=== PATIENT | female | born 1970 | race Caucasian/White ===

== ENCOUNTER → 2020-12-16 | Day surgery (SDC) | payer MEDICARE, OTHER ==
[~2020-12-16] MED LIST: ASPIRIN EC81 MG PO; BREO ELLIPTA 11 EACH INH; CHANTIX1 EACH PO; COMBIVENT RESPIM4 GM INH; CYANOCOBAL1000 MCG/1 IM; CYCLOBENZAPRINE10 MG PO; DALIRESP500 MCG PO; DOXYCYCLINE HY100 MG PO; ELAVIL25 MG PO; ESCITALOPRAM OXA5 MG PO; FENTANYL 25 M1 PATCH TOP; FLONASE ALLER15.8 ML; HYDROCODON-ACE1 EAC6 PO; LASIX40 MG PO; LOPRESSOR50 MG PO; LORAZEPAM 0.5M0.5 MG PO; MEDROL 4MG DOSEP4 MG PO; POTASSIUM CHLO10 ME1 PO; PREDNISONE 20MG20 MG PO; PREGABALIN75 MG PO
[2020-12-16 08:21] LABS: HCG (URINE) SCREEN POSITIVE (NEGATIVE)
== END | disposition home or self-care (01) ==
LOC: FAS 07:48
PROVIDERS: Obstetrics & Gynecology
DX: N93.9 Abnormal uterine and vaginal bleeding, unspecified (principal); Z32.01 Encounter for pregnancy test, result positive; Z53.8 Procedure and treatment not carried out for other reasons; I51.9 Heart disease, unspecified; I10 Essential (primary) hypertension; I83.819 Varicose veins of unspecified lower extremity with pain; R42 Dizziness and giddiness; F17.210 Nicotine dependence, cigarettes, uncomplicated; F41.9 Anxiety disorder, unspecified; F32.9 Major depressive disorder, single episode, unspecified; Z83.438 Family history of other disorder of lipoprotein metabolism and other lipidemia; J45.909 Unspecified asthma, uncomplicated; J44.9 Chronic obstructive pulmonary disease, unspecified; G40.909 Epilepsy, unspecified, not intractable, without status epilepticus; M19.90 Unspecified osteoarthritis, unspecified site; M54.2 Cervicalgia; G89.29 Other chronic pain; G43.909 Migraine, unspecified, not intractable, without status migrainosus; G47.30 Sleep apnea, unspecified; Z20.822 Contact with and (suspected) exposure to COVID-19; E66.9 Obesity, unspecified; R00.0 Tachycardia, unspecified; Z82.49 Family history of ischemic heart disease and other diseases of the circulatory system; Z88.0 Allergy status to penicillin; Z88.8 Allergy status to other drugs, medicaments and biological substances; Z80.9 Family history of malignant neoplasm, unspecified; Z88.6 Allergy status to analgesic agent; Z68.42 Body mass index [BMI] 45.0-49.9, adult; Z77.120 Contact with and (suspected) exposure to mold (toxic); Z68.30 Body mass index [BMI] 30.0-30.9, adult
CPT/HCPCS: 36415; 84702; 84703; 86850; 86900; 86901; J7120

== ENCOUNTER → 2021-01-13 | Day surgery (SDC) | payer MEDICARE, OTHER ==
[~2021-01-13] VITALS: Ht 157.5 cm; Wt 116.2 kg
[2021-01-13 10:41] LABS: HCT 44.4 % (37.0-47.0); HGB 14.5 g/dl (12.5-16.0); MCH 32.7 pg (25.0-31.0); MCHC 32.7 g/dL (32.0-36.0); MPV 9.6 fL (6.0-9.5); RBC 4.44 M/uL (4.20-5.40)
[2021-01-13 11:01] LABS: BUN/CREAT RATIO (CALC) 21.7 RATIO; CREATININE 0.69 mg/dL (0.51-0.95); POTASSIUM 3.8 mmol/L (3.5-5.1)
== END | disposition home or self-care (01) ==
LOC: FAS 09:56
PROVIDERS: Obstetrics & Gynecology
DX: N84.0 Polyp of corpus uteri (principal); N80.0 Endometriosis of uterus; J44.9 Chronic obstructive pulmonary disease, unspecified; F17.210 Nicotine dependence, cigarettes, uncomplicated; M19.90 Unspecified osteoarthritis, unspecified site; I11.9 Hypertensive heart disease without heart failure; G40.909 Epilepsy, unspecified, not intractable, without status epilepticus; E66.9 Obesity, unspecified; R11.2 Nausea with vomiting, unspecified; R42 Dizziness and giddiness; Z68.42 Body mass index [BMI] 45.0-49.9, adult; Z79.82 Long term (current) use of aspirin; Z79.899 Other long term (current) drug therapy; Z88.0 Allergy status to penicillin; Z88.5 Allergy status to narcotic agent; Z88.6 Allergy status to analgesic agent; Z88.8 Allergy status to other drugs, medicaments and biological substances
CPT/HCPCS: 36415; 80048; 86850; 86900; 86901; 88305; J2250; J2704; J3010; J7120

== ENCOUNTER → 2021-02-14 | Day surgery (SDC) | payer MEDICARE, OTHER ==
[2021-02-14 08:20] LABS: HCG (URINE) SCREEN NEGATIVE (NEGATIVE)
[2021-02-14 08:29] LABS: HCT 43.6 % (37.0-47.0); HGB 14.3 g/dl (12.5-16.0); MCH 32.9 pg (25.0-31.0); MCHC 32.8 g/dL (32.0-36.0); MCV 100.5 fL (78.0-100.0); RBC 4.34 M/uL (4.20-5.40); WBC 8.5 K/uL (4.0-10.5)
[2021-02-14 09:02] LABS: ALBUMIN 3.3 g/dL (3.4-5.0); BILIRUBIN - TOTAL 0.2 mg/dL (0.2-1.0); BUN/CREAT RATIO (CALC) 9.5 RATIO; CREATININE 0.63 mg/dL (0.51-0.95); GLOBULIN (CALCULATION) 3.7 g/dL; POTASSIUM 3.8 mmol/L (3.5-5.1)
== END | disposition home or self-care (01) ==
LOC: FAS 07:58
PROVIDERS: Surgery
DX: Z12.11 Encounter for screening for malignant neoplasm of colon (principal); D12.6 Benign neoplasm of colon, unspecified; K58.9 Irritable bowel syndrome, unspecified; R11.2 Nausea with vomiting, unspecified; I11.0 Hypertensive heart disease with heart failure; I50.9 Heart failure, unspecified; J44.9 Chronic obstructive pulmonary disease, unspecified; F41.9 Anxiety disorder, unspecified; M81.0 Age-related osteoporosis without current pathological fracture; M19.90 Unspecified osteoarthritis, unspecified site; F17.210 Nicotine dependence, cigarettes, uncomplicated; G43.909 Migraine, unspecified, not intractable, without status migrainosus; Z88.6 Allergy status to analgesic agent; Z88.5 Allergy status to narcotic agent; Z88.0 Allergy status to penicillin; Z88.8 Allergy status to other drugs, medicaments and biological substances; Z79.899 Other long term (current) drug therapy; Z98.890 Other specified postprocedural states; Z82.49 Family history of ischemic heart disease and other diseases of the circulatory system; Z20.822 Contact with and (suspected) exposure to COVID-19
CPT/HCPCS: 36415; 80053; 84703; 88305; J1610; J2250; J2704; J7120

== ENCOUNTER 2021-08-29 17:56 | Emergency (ER) | payer MEDICARE, OTHER ==
[2021-08-29 19:54] LABS: BASOPHIL 0.6 % (0-2); EOSINOPHIL 1.3 % (0-5); HCT 44.4 % (37.0-47.0); HGB 14.3 g/dl (12.5-16.0); LYMPHOCYTE 19.5 % (15-48); MCH 32.6 pg (25.0-31.0); MCHC 32.2 g/dL (32.0-36.0); MCV 101.4 fL (78.0-100.0); MONOCYTE 6.3 % (0-12); MPV 9.5 fL (6.0-9.5); NEUTROPHIL 71.8 % (41-80); NRBC 0; PLT 243 K/uL (150-400); RBC 4.38 M/uL (4.20-5.40); RDW 13.9 % (11.5-14.0); WBC 12.9 K/uL (4.0-10.5)
[2021-08-29 20:07] LABS: INR 1.34 (0.9-1.2); PROTHROMBIN TIME 15.9 SECONDS (11.8-13.4)
[2021-08-29 20:12] LABS: ALBUMIN 3.1 g/dL (3.4-5.0); BILIRUBIN - TOTAL 0.2 mg/dL (0.2-1.0); BUN/CREAT RATIO (CALC) 10.7 RATIO; CREATININE 0.84 mg/dL (0.51-0.95); POTASSIUM 3.9 mmol/L (3.5-5.1); TOTAL PROTEIN 7.1 g/dL (6.4-8.2)
[2021-08-30 08:10] LABS: INR 1.22 (0.9-1.2); PROTHROMBIN TIME 14.8 SECONDS (11.8-13.4)
[2021-08-30 08:15] LABS: PTT 86.4 SECONDS (24.4-34.7)
[2021-08-30 13:57] LABS: INR 1.17 (0.9-1.2); PROTHROMBIN TIME 14.3 SECONDS (11.8-13.4)
[2021-08-30 13:58] LABS: PTT 52.4 SECONDS (24.4-34.7)
== END 2021-08-30 16:55 | disposition other institution (70) ==
LOC: FER 17:56
PROVIDERS: Emergency Medicine
DX: I26.92 Saddle embolus of pulmonary artery without acute cor pulmonale (principal); F17.210 Nicotine dependence, cigarettes, uncomplicated; Z88.8 Allergy status to other drugs, medicaments and biological substances; Z88.5 Allergy status to narcotic agent; Z88.0 Allergy status to penicillin; Z88.6 Allergy status to analgesic agent; Z20.822 Contact with and (suspected) exposure to COVID-19
CPT/HCPCS: 36415; 71045; 80053; 84484; 85025; 85610; 85730; 93005; J1644; J1650; U0002

== ENCOUNTER 2021-10-26 12:49 | Emergency (ER) | payer OTHER ==
[2021-10-26 16:31] LABS: BASOPHIL 0.5 % (0-2); EOSINOPHIL 0.5 % (0-5); HCT 43.6 % (37.0-47.0); HGB 13.9 g/dl (12.5-16.0); MCH 32.1 pg (25.0-31.0); MCHC 31.9 g/dL (32.0-36.0); MCV 100.7 fL (78.0-100.0); MPV 9.8 fL (6.0-9.5); NEUTROPHIL 68.7 % (41-80); NRBC 0; PLT 262 K/uL (150-400); RBC 4.33 M/uL (4.20-5.40)
[2021-10-26 16:36] LABS: INR 1.12 (0.9-1.2); PROTHROMBIN TIME 13.8 SECONDS (11.8-13.4); PTT 25.9 SECONDS (24.4-34.7)
[2021-10-26 16:38] LABS: D-DIMER < 0.27 ug/mLFEU (0.00-0.41)
[2021-10-26 17:03] LABS: ALBUMIN 3.6 g/dL (3.4-5.0); BILIRUBIN - TOTAL 0.3 mg/dL (0.2-1.0); BUN/CREAT RATIO (CALC) 17.6 RATIO; CREATININE 0.68 mg/dL (0.51-0.95); GLOBULIN (CALCULATION) 3.5 g/dL; POTASSIUM 3.8 mmol/L (3.5-5.1); TOTAL PROTEIN 7.1 g/dL (6.4-8.2)
[2021-10-26] MEDS ORDERED: PREDNISONE 20MG20 MG PO (19:30)
[2021-10-26] MEDS ORDERED: ZPAK PO (19:30)
[2021-10-26] MEDS ORDERED: MUCUS RELIEF600 MG PO (19:30)
== END 2021-10-26 20:16 | disposition home or self-care (01) ==
LOC: FER 12:49
PROVIDERS: Emergency Medicine
DX: J44.1 Chronic obstructive pulmonary disease with (acute) exacerbation (principal); Z87.891 Personal history of nicotine dependence
CPT/HCPCS: 36415; 71250; 80053; 83880; 84484; 85025; 85379; 85610; 85730; 93005